=== PATIENT | male | born 1955 | race Caucasian/White ===

== ENCOUNTER → 2019-10-15 06:23 | Outpatient (CLI) | payer MEDICARE, OTHER, SELFPAY ==
--- NOTE | 2019-10-15 06:25 | NM_ITS ---
APPROVED REPORT Exam: Nuclear Stress Test Indication: Fatigue, CAD, HTN, DM, Family history Patient Location: Outpatient Stress Tech: Tanesha Collazo NM Tech:Karina Bailey, ARRT, RT (R)(N) Ht: 5 ft 8 in Wt: 195 lbs HR: 80 bpm BP: 133/78 mmHg BSA: 2.02 m2 BMI: 29.6 History: Fatigue, CAD, HTN, DM, Family history Procedure: Patient received a 0.4 mg of intravenous Lexiscan, resting heart rate 80 bpm, resting blood pressure 133/78 mmHg, with Lexiscan maximum heart rate achived was 99 bpm which is Less than 85 % of the maximum predicted heart rate and blood pressure was 177/85 mmHg. With Lexiscan, patient denied any complaint of chest pain. Electrocardiogram Resting electrocardiogram showed sinus rhythm nonspecific ST-T changes, with Lexiscan there is less than 1.[address] segment depression noted from the baseline EKG. The EKG portion of the Lexiscan Myoview is nondiagnostic. Cardiac Stress and Resting SPECT Images: Cardiac Stress and Resting SPECT images were obtained using technetium 99m Myoview 32.4 mCi stress and 10.66 mCi at rest. Gated SPECT for the analysis of segmental wall motion and calculation of the ejection fraction also done. Cardiac stress and rest SPECT images show a fixed defect posterolaterally with normal christiano gated SPECT is likely secondary to soft tissue attenuation, no reversible ischemia seen. Computer derived ejection fraction is over 65% with no regional wall motion abnormality, right ventricle is normal size and contractility. Conclusion: 1. The EKG portion of the Lexiscan Myoview is nondiagnostic. 2. No scintigraphic evidence of reversible ischemia seen, computer derived ejection fraction is over 65% with no regional wall motion abnormality, right ventricle is normal size and contractility. 3. Likely normal Lexiscan Myoview study. Electronically signed by : Magnus Mackay, 10/16/2019 10:41:29
--- NOTE | 2019-10-15 06:25 | CA_ITS ---
APPROVED REPORT EXAM: Comprehensive 2D, Doppler, and color-flow Echocardiogram Plant And Maintenance Technician: Araceli Rodriguez CRT Ht: 5 ft 8 in Wt: 195lbs BSA: 2.02 BP: 128/73 mmHg Indications: Congestive Heart Failure, Shortness of Breath, Diabetes, Hyperlipidemia, Hypertension/HDD, STENT 2D Dimensions LVOT 1.94 cm (M/F) 1.5-2.5 M-Mode Dimensions RVDd 3.47 cm (0.9-2.6) LVDd 4.96 cm (3.5-5.7) LVDs 2.63 cm (3.5-5.7) IVSd 0.99 cm (0.6-1.1) PWd 0.99 cm (0.6-1.1) EF (Teich) 78.20% FS 47.00% EDV (Teich) 116.10 mL ESV (Teich) 25.30 mL Left Ventricle Left atrium is mildly enlarged, left ventricle is normal size, mild concentric left ventricular hypertrophy, visually estimated ejection fraction 55% with no regional wall motion abnormality. Diastolic parameters are inconclusive. Right Ventricle Right atrium and right ventricle mildly enlarged with normal contractility. Aortic Valve Aortic valve is minimally thickened and fibrosed, there is no aortic stenosis or aortic insufficiency. Mitral Valve Mitral valve is grossly normal, there is mild mitral regurgitation. Tricuspid Valve Tricuspid valve grossly normal, there is mild tricuspid regurgitation, tricuspid regurgitation jet velocity is inadequate for calculation of the right ventricular systolic pressure. Pulmonic Valve Pulmonic valve is poorly visualized. Great Vessels Aortic root is normal size. Pericardium No significant pericardial effusion noted. Conclusion 1. Biatrial enlargement, normal left ventricular size, mild concentric left ventricular hypertrophy, visually estimated ejection fraction 55% with no regional wall motion abnormality. Diastolic parameters are inconclusive. 2. Mildly enlarged right ventricle with normal contractility. 3. Mild mitral and tricuspid regurgitation. 4. No significant pericardial effusion noted. Electronically signed by : Magnus Mackay, 10/16/2019 10:44:33
--- NOTE | 2019-10-15 06:25 | CA_ITS ---
APPROVED REPORT Chocolate Temperer: CT Laterality: Bilateral Indications: myke Risk Factors Hypertension: Hyperlipidemia Diabetes Doppler Spectral Velocity Analysis ECA (R) 80.90/13.50 cm/s ECA (L) 71.30/8.30 cm/s dICA (R) 72.60/22.50 cm/s dICA (L) 62.30/21.80 cm/s Santhosh (R) 61.60/19.70 cm/s Santhosh (L) 64.90/22.50 cm/s pICA (R) 43.60/13.70 cm/s pICA (L) 57.30/16.70 cm/s dCCA (R) 77.10/12.90 cm/s dCCA (L) 82.20/16.70 cm/s pCCA (R) 127.70/14.60 cm/s pCCA (L) 229.60/27.00 cm/s Vert (R) 44.10/10.70 cm/s Vert (L) 36.60/10.80 cm/s ICA/CCA 0.90 ICA/CCA 0.80 Findings Duplex evaluation demonstrates stenosis of the right proximal internal carotid artery <20% with PSV <140 cm/sec, EDV <100 cm/sec, and IC/CC Ratio <4.0. Duplex evaluation demonstrates stenosis of the left proximal internal carotid artery <20% with PSV <140 cm/sec, EDV <100 cm/sec, and IC/CC Ratio <4.0. Duplex evaluation demonstrates antegrade flow of the bilateral Vertebral Arteries. Conclusion Duplex evaluation demonstrates stenosis of the right proximal internal carotid artery <20% with PSV <140 cm/sec, EDV <100 cm/sec, and IC/CC Ratio <4.0. Duplex evaluation demonstrates stenosis of the left proximal internal carotid artery <20% with PSV <140 cm/sec, EDV <100 cm/sec, and IC/CC Ratio <4.0. Duplex evaluation demonstrates antegrade flow of the bilateral Vertebral Arteries. Electronically signed by : Epifanio Ferrer MD 10/16/2019 17:31:19
--- NOTE | 2019-10-15 06:25 | CA_ITS ---
APPROVED REPORT Exam: Pharmacologic Technologist: Tanesha Collazo, Ht: 5 ft 8 in Wt: 195 lbs BSA: 2.02 m2 HR: 80 bpm BP: 133/78 mmHg Indications: Fatigue, Shortness of Breath, ROSENDA Medical History Medications: Amlodipine,,,,, Lisinopril,,,,, Aspirin,,,,, Simvastatin,,,,, Metformin,,,,, Carvedilol,,,,, DApagliflozin,,,,, SeMaglutide,,,,, Stress Test Details Test: LEXISCAN HR Resting HR: 84 bpm Max Heart Rate (APMHR): 155 bpm Max HR Achieved: 110 bpm Target HR (85% APMHR): 131 bpm % of APMHR: 70 Recovery HR: 90 bpm BP Resting BP: 133/78 mmHg Max BP: 177/85 mmHg Recovery BP: 147.0/75.0 mmHg ECG Clinical Exercise duration: 04:00 min Highest Stage Achieved: Exercise capacity: 1.0 METs Stress ECG Conclusion Resting EKG: NSR, First degree AV Block, 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 No Chest Pain Arrhythmias/Ectopy: One ventricular couplet, Rare PVC and short sinus pauses while vomiting. ST-T changes: No significant changes. Conclusion: Unremarkable Lexiscan stress with more than usual nausea and vomiting. Myoview images reported separately. Test Summary . . Myoview Injected . Nausea . . Stop exercise at 04:00 . . . . . . Electronically signed by : Magnus Mackay, 10/16/2019 10:38:47
--- NOTE | 2019-10-15 08:04 | HMH.ITSHM ---
Current Home Medications as stated by this patient Misael Mejía or small business representative. []METFORMIN FARXIGA OZEMPIC SIMVASTATIN NORVASC CARVEDILOL LISINOPRIL ASA
== END ==
PROVIDERS: PCP Family Medicine; Visit Provider Nurse Practitioner Family
DX: E11.9 Type 2 diabetes mellitus without complications (principal); E66.9 Obesity, unspecified; E78.5 Hyperlipidemia, unspecified; I11.9 Hypertensive heart disease without heart failure; I25.10 Atherosclerotic heart disease of native coronary artery without angina pectoris; I44.0 Atrioventricular block, first degree; I50.30 Unspecified diastolic (congestive) heart failure; I65.23 Occlusion and stenosis of bilateral carotid arteries
CPT/HCPCS: 78452; 93017; 93306; 93880; A9502; J2785

== ENCOUNTER → 2021-05-25 09:55 | Outpatient (CLI) | payer MEDICARE, SELFPAY ==
[2021-05-25 10:26] LABS: Creatinine,Urine Random 156 mg/dL (Not Estab.)
[2021-05-25 10:30] LABS: Microalbumin/Creatinine Ratio 6.7
[2021-05-25 10:38] LABS: Chloride 106 mmol/L (98-107); Potassium 4.1 mmoL/L (3.5-5.1); Sodium 140 mmol/L (136-145)
[2021-05-25 10:39] LABS: Alanine Aminotransferase 29 U/L (12-78); Albumin Level 4.5 g/dl (3.5-5.0); Albumin/Globulin Ratio 1.9 (1.1-1.8); Alkaline Phosphatase 39 U/L (38-126); Aspartate Amino Transferase 31 U/L (17-59); Bilirubin,Total 0.5 mg/dl (0.2-1.3); Blood Urea Nitrogen 29 mg/dl (9-20); Calcium 8.8 mg/dl (8.4-10.2); Cholesterol 163 mg/dl (140-200); Estimated Glomerular Filt Rate 75 ml/min (>60); GFR (African American) 90 ML/MIN (>60); Globulin 2.4 g/dL (1.3-3.2); Glucose 126 mg/dl (74-100); Total Protein,Serum 6.9 g/dl (6.3-8.2); Triglycerides 169 mg/dl (30-150); VLDL Cholesterol 34 mg/dL (0-40)
[2021-05-25 10:40] LABS: Chol/HDL Ratio 3.9 (1-3.5); HDL Cholesterol 42 mg/dl (40-60)
[2021-05-25 10:51] LABS: Direct LDL Cholesterol 73.34 mg/dL (100-129)
[2021-05-25 14:05] LABS: Anion Gap 13.1 mEq/L (5-15); Carbon Dioxide 25 mmol/L (22.0-30.0)
== END ==
PROVIDERS: Visit Provider Internal Medicine Endocrinology, Diabetes & Metabolism
DX: E11.59 Type 2 diabetes mellitus with other circulatory complications (principal); E78.5 Hyperlipidemia, unspecified; Z79.84 Long term (current) use of oral hypoglycemic drugs
CPT/HCPCS: 36415; 80053; 80061; 82043; 82570

== ENCOUNTER → 2022-06-05 09:42 | Outpatient (CLI) | payer MEDICARE, SELFPAY ==
[2022-06-05 10:32] LABS: Basophils % 0.3 % (0.1-2.0); Eosinophils # 0.1 K/mm3 (0.0-0.4); Eosinophils % 1.3 % (0.1-12.0); Hemoglobin 15.8 g/dL (14.1-18.0); Lymphocytes # 1.7 K/mm3 (0.7-4.5); Lymphocytes % 23.1 % (10-50); Mean Corpuscular HGB Conc 31.7 g/dL (31.8-35.4); Mean Corpuscular Hemoglobin 28.6 pg (27.0-31.2); Mean Corpuscular Volume 90.5 fl (80-94); Mean Platelet Volume 9.7 fl (7.4-10.4); Monocytes # 0.6 K/mm3 (0.1-1.0); Monocytes % 7.3 % (1.7-9.3); Neutrophils # 5.1 K/mm3 (1.8-7.8); Platelet Count 209 K/mm3 (142-424); Red Blood Count 5.52 M/mm3 (4.60-6.20); Red Cell Distribution Width 14.5 % (11.5-17.5); White Blood Count 7.5 K/mm3 (4.8-10.8)
[2022-06-05 11:12] LABS: Alanine Aminotransferase 25 U/L (12-78); Albumin Level 4.5 g/dl (3.5-5.0); Alkaline Phosphatase 42 U/L (38-126); Anion Gap 13.4 mEq/L (5-15); Aspartate Amino Transferase 29 U/L (17-59); Bilirubin,Indirect 0.5 mg/dL (0.0-0.9); Bilirubin,Total 0.5 mg/dl (0.2-1.3); Bilirubin,Unconjugated 0.6 mg/dL (0.0-1.1); Blood Urea Nitrogen 24 mg/dl (9-20); Calcium 9.4 mg/dl (8.4-10.2); Carbon Dioxide 27 mmol/L (22.0-30.0); Chloride 102 mmol/L (98-107); Chol/HDL Ratio 3.2 (1-3.5); Cholesterol 143 mg/dl (140-200); Estimated Glomerular Filt Rate 67 ml/min (>60); GFR (African American) 81 ML/MIN (>60); Glucose 116 mg/dl (74-100); HDL Cholesterol 45 mg/dl (40-60); Potassium 4.4 mmoL/L (3.5-5.1); Sodium 138 mmol/L (136-145); Total Protein,Serum 6.9 g/dl (6.3-8.2); Triglycerides 120 mg/dl (30-150); VLDL Cholesterol 24 mg/dL (0-40)
[2022-06-05 11:23] LABS: Direct LDL Cholesterol 68.65 mg/dL (100-129)
[2022-06-05 11:28] LABS: Free T4 (Free Thyroxine) 1.11 ng/dl (0.78-2.19)
[2022-06-05 11:45] LABS: Thyroid Stimulating Hormone 2.59 uIU/mL (0.465-4.68)
== END ==
PROVIDERS: PCP Family Medicine; Visit Provider Nurse Practitioner
DX: E78.2 Mixed hyperlipidemia (principal); I25.10 Atherosclerotic heart disease of native coronary artery without angina pectoris; I44.0 Atrioventricular block, first degree; I50.32 Chronic diastolic (congestive) heart failure; I65.23 Occlusion and stenosis of bilateral carotid arteries; I11.0 Hypertensive heart disease with heart failure
CPT/HCPCS: 36415; 80048; 80061; 80076; 83735; 84439; 84443; 85025

== ENCOUNTER → 2022-06-09 12:34 | Outpatient (CLI) | payer MEDICARE, SELFPAY ==
--- NOTE | 2022-06-09 12:37 | CA_ITS ---
FINAL REPORT TECHNIQUE: Color Doppler, duplex Doppler and decker scale sonography of the bilateral neck arterial vasculature was performed. Velocities were measured in the carotid arteries. Stenosis evaluation based on the validated velocity criteria. CLINICAL HISTORY: myke, HTN, hyperlipidemia, DM, CAD, 1 cardiac stent FINDINGS: The peak systolic velocity of the right common carotid artery is 92 cm/s. The peak systolic velocity of the right internal carotid artery is 98 cm/s and end diastolic velocity 28 cm/s. A small amount of plaque is present. The right external carotid artery is patent. The right vertebral artery is patent with antegrade flow. The peak systolic velocity of the left common carotid artery is 125 cm/s. The peak systolic velocity of the left internal carotid artery is 94 cm/s and end diastolic velocity 28 cm/s. A small amount of plaque is present. The left external carotid artery is patent.The left vertebral artery is patent with antegrade flow. IMPRESSION: Less than 50% bilateral carotid stenoses. Bilateral patent vertebral arteries with antegrade flow. If indicated, CTA or MRA could further evaluate. Reviewed, Interpreted and Dictated by Jerad Arshad III, MD Transcribed by Ivonne Shields Authenticated and [facility]
== END ==
PROVIDERS: PCP Family Medicine; Visit Provider Nurse Practitioner
DX: E78.2 Mixed hyperlipidemia (principal); I11.9 Hypertensive heart disease without heart failure; I25.10 Atherosclerotic heart disease of native coronary artery without angina pectoris; I44.0 Atrioventricular block, first degree; I50.32 Chronic diastolic (congestive) heart failure; I65.23 Occlusion and stenosis of bilateral carotid arteries
CPT/HCPCS: 93880

== ENCOUNTER 2024-12-16 10:35 | Outpatient (CLI) | payer MEDICARE, SELFPAY ==
--- OUTSIDE RECORDS SUMMARY | 2024-12-16 10:46 | XMS_ITS | Continuity of Care Document ---
Author Organization [facility] Address [address] [place] [phone] Phone Care Team Providers Care Debarker Operator Name Role Phone Unavailable Primary Care Provider Unavailabl e Encounters Date Type Department Care Team Description 08/28/2024 Results Follow-Up [facility] [address] [place] [address] Delma Garnett RN IRIS DIABETIC RETINOPATHY EXAM 08/28/2024 Patient Outreach [facility] [address] [place] [address] Hugo Potter MD Results (iris) 08/28/2024 9:00 AM EDT Office Visit [facility] [address] [place] [phone] Hugo Potter MD Type 2 diabetes mellitus with hyperglycemia, without long-term current use of insulin (HCC) (Primary Dx); Hypertension associated with diabetes (HCC); Hyperlipidemia associated with type 2 diabetes mellitus (HCC); Type 2 diabetes mellitus without complication, unspecified whether group home insulin use (HCC) 06/06/2024 Refill [facility] [address] [place] [phone] Hugo Potter MD Medication Refill 03/07/2024 Orders Only [facility]P [facility] [address] [place] [address] La Nena Cope CPhT 03/03/2024 Telephone [facility] [address] [place] [phone] Hugo Potter MD Labs Only 02/28/2024 10:15 AM EST Office Visit [facility] [address] [place] [phone] Hugo Potter MD Type 2 diabetes mellitus with hyperglycemia, without long-term current use of insulin (HCC) (Primary Dx); Hypertension associated with diabetes (HCC); Hyperlipidemia associated with type 2 diabetes mellitus (HCC) 11/12/2023 Telephone [facility] [address] [place] [phone] Hugo Potter MD Medication Management 11/09/2023 Refill [facility] [address] [place] [phone] Hugo Potter MD Medication Refill 10/02/2023 Refill [facility] [address] [place] [phone] Hugo Potter MD Medication Refill 09/28/2023 Telephone [facility] [address] [place] [phone] Hugo Potter MD Medication Refill 09/07/2023 Telephone [facility] [address] [place] [phone] Hugo Potter MD Medication Management 08/30/2023 Orders Only [facility] [address] [place] [phone] Hugo Potter MD Type 2 diabetes mellitus with hyperglycemia, without long-term current use of insulin (HCC) (Primary Dx) 08/30/2023 9:45 AM EDT Office Visit [facility] [address] [facility] [address] [place], [place] [phone] Hugo Potter MD Type 2 diabetes mellitus with hyperglycemia, without long-term current use of insulin (HCC) (Primary Dx); Hypertension associated with diabetes (HCC); Hyperlipidemia associated with type 2 diabetes mellitus (HCC) 05/28/2023 Refill [place] [address] [place] [phone] Hugo Potter MD Medication Refill 03/01/2023 10:00 AM EST Office Visit [place] [address] [phone] Hugo Potter MD Type 2 diabetes mellitus with hyperglycemia, without long-term current use of insulin (HCC) (Primary Dx); Hypertension associated with diabetes (HCC); Hyperlipidemia associated with type 2 diabetes mellitus (HCC) 09/06/2022 Patient Outreach [facility] [address] [place] [phone] Freddy Mims [place] Patient Navigator Outreach (Appointment Needed) 09/01/2022 Telephone [place] [address] [phone] Hugo Potter MD Labs Only 08/31/2022 9:45 AM EDT Office Visit [place] [address] [place] [phone] Hugo Potter MD Type 2 diabetes mellitus with hyperglycemia, without long-term current use of insulin (HCC) (Primary Dx); Hypertension associated with diabetes (HCC); Hyperlipidemia associated with type 2 diabetes mellitus (HCC) 07/27/2022 Patient Outreach [facility] [address] [place], [place] [phone] Priyanka Campos, PharmD Medication Management 03/01/2022 9:45 AM EST Office Visit [place] [address] [place] [phone] Hugo Potter MD Type 2 diabetes mellitus with hyperglycemia, without long-term current use of insulin (HCC) (Primary Dx); Hypertension associated with diabetes (HCC); Hyperlipidemia associated with type 2 diabetes mellitus (HCC) 02/28/2022 Telephone SEP [facility] [address] [place] [phone] Hugo Potter MD Confirmation 01/25/2022 Refill [facility] [address] [place] [phone] Hugo Potter MD Medication Refill 10/20/2021 Refill [place] [address] [place], [place] [phone] Hugo Potter MD Medication Refill 08/26/2021 9:30 AM EDT Office Visit [place] [address] [place], [place] [phone] Hugo Potter MD Type 2 diabetes mellitus with hyperglycemia, without long-term current use of insulin (HCC) (Primary Dx) 05/20/2021 10:30 AM EDT Office Visit [place] [address] [phone] Hugo Potter MD Hypertension associated with diabetes (HCC) (Primary Dx); Type 2 diabetes mellitus with hyperglycemia, without long-term current use of insulin (HCC); Hyperlipidemia associated with type 2 diabetes mellitus (HCC) 05/02/2021 Refill [facility] [address] [place] [phone] Hugo Potter MD Medication Refill 02/18/2021 11:15 AM EST Office Visit [facility] [address] [place] [phone] Hugo Potter MD Type 2 diabetes mellitus with hyperglycemia, without long-term current use of insulin (HCC) (Primary Dx); Hypertension associated with diabetes (HCC); Hyperlipidemia associated with type 2 diabetes mellitus (HCC) 11/12/2020 Travel 11/12/2020 11:15 AM EDT Office Visit [place] [address] [phone] Hugo Potter MD Type 2 diabetes mellitus with hyperglycemia, without long-term current use of insulin (HCC) (Primary Dx); Hypertension associated with diabetes (HCC); Hyperlipidemia associated with type 2 diabetes mellitus (HCC) 08/11/2020 Travel 08/11/2020 11:30 AM EDT Office Visit [place] [address] [address] [employer] [facility] [employer] [address] [phone] Hugo Potter MD Type 2 diabetes mellitus with hyperglycemia, without long-term current use of insulin (HCC) (Primary Dx); Hypertension associated with diabetes (HCC); Hyperlipidemia associated with type 2 diabetes mellitus (HCC) 05/05/2020 Travel 05/05/2020 11:15 AM EDT Office Visit [place] [address] [address] [employer] [facility] [employer] [address] [phone] Hugo Potter MD Type 2 diabetes mellitus with hyperglycemia, without long-term current use of insulin (HCC) (Primary Dx); Hypertension associated with diabetes (HCC); Hyperlipidemia associated with type 2 diabetes mellitus (HCC) 05/03/2020 Telephone [place] [address] [address] [employer] [facility] [employer] [address] [phone] Hugo Potter MD Labs Only Allergies No known active allergies Medications amLODIPine (NORVASC) 10 mg Oral Tablet Take 1 Tab by mouth daily. 1 Active carvediloL (COREG) 12.5 mg Oral Tablet Take 1 Tab by mouth daily. 1 Active lisinopriL-hyd rochlorothiazi de (PRINZIDE;ZEST ORETIC) 20-12.5 mg Oral Tablet Take 1 Tab by mouth daily. 1 Active ondansetron (ZOFRAN-ODT) 4 mg Oral Tablet, Rapid Dissolve as needed. 1 Active aspirin 81 mg Oral Tablet, Delayed Release (E.C.) Take 81 mg by mouth daily. Active rosuvastatin (CRESTOR) 40 mg Oral Tablet Take 40 mg by mouth daily. 4 Active Blood Sugar Diagnostic (CONTOUR NEXT TEST STRIPS) [facility] Use to test blood sugar daily. 100 Each 3 4 Active FARXIGA 10 mg Oral TabletIndicati ons:Type 2 diabetes mellitus with hyperglycemia, without long-term current use of insulin (HCC) Take 1 Tablet by mouth daily. 90 Tablet 3 4 Active pioglitazone (ACTOS) 45 mg Oral TabletIndicati ons:Type 2 diabetes mellitus with hyperglycemia, without long-term current use of insulin (HCC) Take 1 Tablet by mouth daily. 90 Tablet 3 5 Active semaglutide (OZEMPIC) 1 mg/dose (4 mg/3 mL) SubQ Pen InjectorIndica tions:Type 2 diabetes mellitus with hyperglycemia, without long-term current use of insulin (HCC) INJECT 1MG SUBCUTANEOUSLY WEEKLY (EVERY 7 DAYS) 9 mL 1 5 Active metFORMIN (GLUCOPHAGE) 1,000 mg Oral TabletIndicati ons:Type 2 diabetes mellitus with hyperglycemia, without long-term current use of insulin (HCC) TAKE 1 TABLET TWICE DAILY WITH MEALS 180 Tablet 1 5 Active Active Problems Problem Noted Date Diagnosed Date Type 2 diabetes mellitus wit h hyperglycemia, without long-term current use of insulin 05/05/2020 Hypertension associated with diabetes 05/05/2020 Hyperlipidemia associated with type 2 diabetes m ellitus 05/05/2020 Immunizations Immunization Administration Dates Next Due Influenza Vaccine Quadrivalent PF 01/23/2022,01/2020 Tdap 12/04/2019 Social History Smoking Status as of 12/16/2024 Tobacco Use Types Packs/Day Years Used Date Smoking Tobacco: Never Assessed Sex and Gender Information Value Date Recorded Sex Assigned at Not on file Legal Sex Male 10:16 AM EST Gender Identity Not on file Sexual Orientation Not on file Last Filed Vital Signs Vital Sign Reading Time Taken Comments Blood Pressure 124/72 08/28/2024 8:45 AM EDT Pulse 78 08/28/2024 8:45 AM EDT Temperature - - Respiratory Rate 18 02/28/2024 10:12 AM EST Oxygen Saturation - - Inhaled Oxygen Concentration - - Weight 93.6 kg (206 lb 6.4 oz) 08/28/2024 8:45 A M EDT Height 172.7 cm (5' 8 ) 08/28/2024 8:45 AM EDT Body Mass Index 31.38 08/28/2024 8:45 AM EDT Plan of Treatment Upcoming Encounters Date Type Department Care Team (Late st Contact Info) Description 03/02/2025 10:45 AM EST [facility] [place] [address] [facility] [address] [place] [address] Hugo Potter MD [address] [place] [address] Procedures Procedure Name Priority Date/Time Associated Diagnosis Comments IRIS DIABETIC RETINOPATHY EXAM Routine 08/28/2024 9:50 AM EDT Type 2 diabetes mellitus without complication, unspecified whether terminal operations supervisor insulin use (HCC) COMPREHENSIVE METABOLIC PANEL Routine 08/18/2024 LIPID PANEL REFLEX Routine 08/18/2024 VITAMIN B12 LEVEL Routine 08/18/2024 HEMOGLOBIN A1C Routine 08/18/2024 ALBUMIN/CREATININE RATIO, RANDOM URINE Routine 08/18/2024 ALBUMIN/CREATININE RATIO, RANDOM URINE Routine 02/14/2024 HEMOGLOBIN A1C Routine 02/14/2024 COMPREHENSIVE METABOLIC PANEL Routine 02/14/2024 LIPID PANEL REFLEX Routine 02/14/2024 VITAMIN B12 LEVEL Routine 02/14/2024 HEMOGLOBIN A1C Routine 08/20/2023 COMPREHENSIVE METABOLIC PANEL Routine 08/20/2023 LIPID PANEL REFLEX Routine 08/20/2023 ALBUMIN/CREATININE RATIO, RANDOM URINE Routine 08/20/2023 SCANNED LABS 03/06/2023 11:56 AM EST ALBUMIN/CREATININE RATIO, RANDOM URINE Routine 02/20/2023 COMPREHENSIVE METABOLIC PANEL Routine 02/20/2023 LIPID PANEL REFLEX Routine 02/20/2023 THYROID STIMULATING HORMONE Routine 02/20/2023 HEMOGLOBIN A1C Routine 02/20/2023 SCANNED LABS 09/12/2022 5:56 AM EDT ALBUMIN/CREATININE RATIO, RANDOM URINE Routine 08/17/2022 COMPREHENSIVE METABOLIC PANEL Routine 08/17/2022 LIPID PANEL REFLEX Routine 08/17/2022 VITAMIN B12 LEVEL Routine 08/17/2022 HEMOGLOBIN A1C Routine 08/17/2022 POCT GLYCATED HEMOGLOBIN, TOTAL Routine 03/01/2022 9:56 AM EST Type 2 diabetes mellitus with hyperglycemia, without long-term current use of insulin (HCC) SCANNED LABS 08/26/2021 10:43 AM EDT POCT GLYCATED HEMOGLOBIN, TOTAL Routine 08/26/2021 9:42 AM EDT Type 2 diabetes mellitus with hyperglycemia, without long-term current use of insulin (HCC) ALBUMIN/CREATININE RATIO, RANDOM URINE Routine 05/25/2021 LIPID SCREEN Routine 05/25/2021 COMPREHENSIVE METABOLIC PANEL Routine 05/25/2021 POCT GLYCATED HEMOGLOBIN, TOTAL Routine 05/20/2021 10:39 AM EDT Type 2 diabetes mellitus with hyperglycemia, without long-term current use of insulin (HCC) POCT GLYCATED HEMOGLOBIN, TOTAL Routine 02/18/2021 11:44 AM EST Type 2 diabetes mellitus with hyperglycemia, without long-term current use of insulin (HCC) ALBUMIN/CREATININE RATIO, RANDOM URINE Routine 11/05/2020 LIPID PANEL REFLEX Routine 11/05/2020 COMPREHENSIVE METABOLIC PANEL Routine 11/05/2020 HEMOGLOBIN A1C Routine 11/05/2020 POCT GLYCATED HEMOGLOBIN, TOTAL Routine 08/11/2020 12:11 PM EDT Type 2 diabetes mellitus with hyperglycemia, without long-term current use of insulin (HCC) POCT GLYCATED HEMOGLOBIN, TOTAL Routine 05/05/2020 11:40 AM EDT Type 2 diabetes mellitus with hyperglycemia, without long-term current use of insulin (HCC) Results * (ABNORMAL) IRIS DIABETIC RETINOPATHY EXAM (08/28/2024 9:50 AM EDT) [facility] Retinopathy Exam Severity ALERT(A) [facility] Right Eye Image Quality Not Gradable Image [facility] Left Eye Image Quality Not Gradable Image [facility] 08/28/2024 9:50 AM EDT 08/28/2024 9:50 AM EDT Impressions [facility] - 08/28/2024 10:50 AM EDT Retinal Study Result for MISAEL MEJÍA, a 68 y/o, M (: 1955, ) presented to [facility] on 08-28-2024 for a retinal imaging study of the left and right eyes. Based on the findings of the study, the following is recommended for MISAEL MEJÍA Not Gradable Eye(s) Found: Refer patient to Ophthalmology for appointment within 2 weeks Interpreting Provider's Comments: No comments provided Diagnoses Present: E119 - Type 2 diabetes mellitus without complications Right eye findings: Eye not gradable for reasons listed: Pérez anatomy missing or not clearly visible Left eye findings: Eye not gradable for reasons listed: Pérez anatomy missing or not clearly visible This result was electronically signed by Jonathan Osei MD, , Taxonomy: [id number] on 08-28-2024 14:50 UTC. NOTE: Any pathology noted on this diabetic retinal evaluation should be confirmed by an appropriate ophthalmic examination. Hugo Potter MD OPHTHALMOLOGY SERVICES ORDERA BLES Final Result Performing Organization Address [facility]/[place] [address] * LIPID PANEL REFLEX (08/18/2024) Only the most recent of6 resultswithin the time period is included. Triglycerides 107 MG/DL SEP OFFICE Comment:<150 Cholesterol 110 0 - 200 MG/DL SEP OFFICE Comment:<200 HDL 46 >=40 MG/DL SEP OFFICE Comment:>60 LDL Calculated 43 0 - 160 MG/DL SEP OFFICE Comment:<100 Blood VENOUS BLOOD / Unknown 08/18/2024 Hugo Potter MD CHEMISTRY ORDERABLES Final Re sult Performing Organization Address City/[facility]/ZIP Co de Phone Number SEP OFFICE * MICROALBUMIN/CREATININE RATIO URINE (08/18/2024) Only the most recent of7 resultswithin the time period is included. Creatinine Urine 124.4 SEP OFFICE Albumin, Ur 3.8 <=31 MG/L SEP OFFICE Urine Microalb/Creat Ratio 3 MCG/MG CREAT. SEP OFFICE Comment:0-29 Urine STRUCTURE OF URINARY TRACT PROPER / Unknown 08/18/2024 Hugo Potter MD URINE ORDERABLES Final Result SEP OFFICE * HEMOGLOBIN A1C (08/18/2024) Only the most recent of6 resultswithin the time period is included. Hemoglobin A1C 7.6 % SEP OFFICE Comment:4.5-6.2 Blood VENOUS BLOOD / Unknown 08/18/2024 Hugo Potter MD CHEMISTRY ORDERABLES Final Re sult Performing Organization Address City/[facility]/ZIP Co de Phone Number SEP OFFICE * VITAMIN B12 LEVEL (08/18/2024) Only the most recent of3 resultswithin the time period is included. Vitamin B12 447 PG/ML SEP OFFICE Comment:232-1245 Blood VENOUS BLOOD / Unknown 08/18/2024 uHgo Potter MD CHEMISTRY ORDERABLES Final Re sult Performing Organization Address [facility] Co de Phone Number SEP OFFICE * (ABNORMAL) COMPREHENSIVE METABOLIC PANEL (08/18/2024) Only the most recent of7 resultswithin the time period is included. Sodium 139 137 - 147 MMOL/L SEP OFFICE Comment:136-145 Potassium 4.3 3.5 - 5.0 mmol/L SEP OFFICE Comment:3.5-5.1 Chloride 100 99 - 108 MMOL/L SEP OFFICE Comment:98-107 Total CO2 26 22 - 29 MMOL/L SEP OFFICE Comment:24-33 Anion Gap 17.3 MMOL/L SEP OFFICE Comment:10-20 Glucose Lvl 136 MG/DL SEP OFFICE Comment:70-99 BUN 30(A) 4 - 21 MG/DL SEP OFFICE Comment:7-18 Creatinine 1.5(A) 0.6 - 1.3 MG/DL SEP OFFICE Comment:0.70-1.30 Estimated GFR 52 SEP OFFICE Comment:>60 BUN 20 4 - 21 MG/DL SEP OFFICE Comment:12-20 Total Protein 6.9 6.4 - 8.2 GM/DL SEP OFFICE Comment:6.4-8.2 Albumin 4.1 GM/DL SEP OFFICE Comment:3.4-5.0 Globulin 2.8 G/DL SEP OFFICE Comment:1.5-4.0 A/G Ratio 1.5 (CALC) SEP OFFICE Comment:0.5-2.0 Calcium 9.30 8.70 - 10.70 MG/DL SEP OFFICE Comment:8.1-10.1 Osmolality Calc 285 SEP OFFICE Comment:272-288 Bilirubin,Total 0.7 MG/DL SEP OFFICE Comment:0.2-1.0 AST 28 14 - 40 IU/L SEP OFFICE Comment:15-337 ALT 39 U/L SEP OFFICE Comment:16-63 Alk Phos 44 25 - 125 IU/L SEP OFFICE Comment:46-116 Blood VENOUS BLOOD / Unknown 08/18/2024 us Hugo Potter MD CHEMISTRY ORDERABLES Final Re sult SEP OFFICE * SCANNED LABS (03/06/2023 11:56 AM EST) Only the most recent of3 resultswithin the time period is included. 03/06/2023 11:5 6 AM EST us Unknown Provider HEMATOLOGY ORDERABLES Final Res ult * THYROID STIMULATING HORMONE (02/20/2023) TSH 2.590 0.400 - 4.500 MCIU/ML SEP OFFICE Comment:0.36-3.74 Blood VENOUS BLOOD / Unknown 02/20/2023 us Historical Provider CHEMISTRY ORDERABLES Final R esult SEP OFFICE * (ABNORMAL) POCT GLYCATED HEMOGLOBIN, TOTAL (03/01/2022 9:56 AM EST) Only the most recent of6 resultswithin the time period is included. Hemoglobin A1C 6.3(A) 4 - 6 % SEP OFFICE Lot Number SEP OFFICE Expiration Date SEP OFFICE SeriAl # SEP OFFICE 03/01/2022 9:56 AM EST Hugo Potter MD POINT OF CARE TEST ORDERABLES Final Result SEP OFFICE * LIPID SCREEN (05/25/2021) Triglycerides 169 MG/DL SEP OFFICE Comment:30-150 Cholesterol 163 0 - 200 MG/DL SEP OFFICE Comment:140-200 LDL Direct 73.34 MG/DL SEP OFFICE Comment:100-129 VLDL 34 MG/DL SEP OFFICE Comment:0-40 HDL 42 35 - 70 MG/DL SEP OFFICE Comment:40-60 Chol/HDL Ratio 3.9 SEP OFFICE Comment:1-3.5 Blood VENOUS BLOOD / Unknown 05/25/2021 Hugo Potter MD CHEMISTRY ORDERABLES Final Re sult SEP OFFICE Visit Diagnoses Diagnosis Start Date Type 2 diabetes mellitus with hyperglycemia, without long-term current use of insulin ([facility]) 05/05/2020 Hypertension associated with diabetes (HCC) Type II or unspecified type diabetes mellitus with other specified manifestations, not stated as uncontrolled 05/05/2020 Hyperlipidemia associated with type 2 diabetes mellitus (HCC) 05/05/2020 Type 2 diabetes mellitus with hyperglycemia, without long-term current use of insulin (HCC) 08/11/2020 Hypertension associated with diabetes (HCC) Type II or unspecified type diabetes mellitus with other specified manifestations, not stated as uncontrolled 08/11/2020 Hyperlipidemia associated with type 2 diabetes mellitus (HCC) 08/11/2020 Type 2 diabetes mellitus with hyperglycemia, without long-term current use of insulin (HCC) 11/12/2020 Hypertension associated with diabetes (HCC) Type II or unspecified type diabetes mellitus with other specified manifestations, not stated as uncontrolled 11/12/2020 Hyperlipidemia associated with type 2 diabetes mellitus (HCC) 11/12/2020 Type 2 diabetes mellitus with hyperglycemia, without long-term current use of insulin (HCC) 02/18/2021 Hypertension associated with diabetes (HCC) Type II or unspecified type diabetes mellitus with other specified manifestations, not stated as uncontrolled 02/18/2021 Hyperlipidemia associated with type 2 diabetes mellitus (HCC) 02/18/2021 Type 2 diabetes mellitus with hyperglycemia, without long-term current use of insulin (HCC) 05/02/2021 Type 2 diabetes mellitus with hyperglycemia, without long-term current use of insulin (HCC) 05/20/2021 Hypertension associated with diabetes (HCC) Type II or unspecified type diabetes mellitus with other specified manifestations, not stated as uncontrolled 05/20/2021 Hyperlipidemia associated with type 2 diabetes mellitus (HCC) 05/20/2021 Type 2 diabetes mellitus with hyperglycemia, without long-term current use of insulin (HCC) 08/26/2021 Type 2 diabetes mellitus with hyperglycemia, without long-term current use of insulin (HCC) 10/20/2021 Type 2 diabetes mellitus with hyperglycemia, without long-term current use of insulin (HCC) 01/25/2022 Type 2 diabetes mellitus with hyperglycemia, without long-term current use of insulin (HCC) 03/01/2022 Hypertension associated with diabetes (HCC) Type II or unspecified type diabetes mellitus with other specified manifestations, not stated as uncontrolled 03/01/2022 Hyperlipidemia associated with type 2 diabetes mellitus (HCC) 03/01/2022 Type 2 diabetes mellitus with hyperglycemia, without long-term current use of insulin (HCC) 08/31/2022 Hypertension associated with diabetes (HCC) Type II or unspecified type diabetes mellitus with other specified manifestations, not stated as uncontrolled 08/31/2022 Hyperlipidemia associated with type 2 diabetes mellitus (HCC) 08/31/2022 Type 2 diabetes mellitus with hyperglycemia, without long-term current use of insulin (HCC) 03/01/2023 Hypertension associated with diabetes (HCC) Type II or unspecified type diabetes mellitus with other specified manifestations, not stated as uncontrolled 03/01/2023 Hyperlipidemia associated with type 2 diabetes mellitus (HCC) 03/01/2023 Type 2 diabetes mellitus with hyperglycemia, without long-term current use of insulin (HCC) 05/28/2023 Type 2 diabetes mellitus with hyperglycemia, without long-term current use of insulin (HCC) 08/30/2023 Type 2 diabetes mellitus with hyperglycemia, without long-term current use of insulin (HCC) 08/30/2023 Hypertension associated with diabetes (HCC) Type II or unspecified type diabetes mellitus with other specified manifestations, not stated as uncontrolled 08/30/2023 Hyperlipidemia associated with type 2 diabetes mellitus (HCC) 08/30/2023 Type 2 diabetes mellitus with hyperglycemia, without long-term current use of insulin (HCC) 09/28/2023 Type 2 diabetes mellitus with hyperglycemia, without long-term current use of insulin (HCC) 10/02/2023 Type 2 diabetes mellitus with hyperglycemia, without long-term current use of insulin (HCC) 11/09/2023 Type 2 diabetes mellitus with hyperglycemia, without long-term current use of insulin (HCC) 11/12/2023 Type 2 diabetes mellitus with hyperglycemia, without long-term current use of insulin (HCC) 02/28/2024 Hypertension associated with diabetes ([facility]) Type II or unspecified type diabetes mellitus with other specified manifestations, not stated as uncontrolled 02/28/2024 Hyperlipidemia associated with type 2 diabetes mellitus (HCC) 02/28/2024 Type 2 diabetes mellitus with hyperglycemia, without long-term current use of insulin (HCC) 06/06/2024 Type 2 diabetes mellitus with hyperglycemia, without long-term current use of insulin (HCC) 08/28/2024 Hypertension associated with diabetes ([facility]) Type II or unspecified type diabetes mellitus with other specified manifestations, not stated as uncontrolled 08/28/2024 Hyperlipidemia associated with type 2 diabetes mellitus (HCC) 08/28/2024 Type 2 diabetes mellitus without complication, unspecified whether terminal operations supervisor insulin use 08/28/2024
--- OUTSIDE RECORDS SUMMARY | 2024-12-16 10:46 | XMS_ITS | Encounter Summary ---
Author Organization [place] [address] Care Team Providers Care Recycling Sorter Name Role Phone Unavailable Primary Care Provider Unavailabl e Encounter Details Date Type Department Care Team (Late st Contact Info) Description 08/28/2024 Results Follow-Up [facility] [address] [place] [address] Delma Garnett RN [facility] EXAM Social History Tobacco Use Types Packs/Day Years Used Date Smoking Tobacco: Never Smokeless Tobacco: Never Sex and Gender Information Value Date Recorded Sex Assigned at Not on file Legal Sex Male 10:16 AM EST Gender Identity Not on file Sexual Orientation Not on file documented as of this encounter Plan of Treatment Upcoming Encounters Date Type Department Care Team (Late st Contact Info) Description 03/02/2025 10:45 AM EST [facility] [address] [address] Hugo Potter MD [address] [place] [address] documented as of this encounter Visit Diagnoses Not on filedocumented in this encounter Additional Health Concerns Assessment Noted Time A fall risk assessment has been complete d for the patient 08/31/2022 9:59 AM EDT documented as of this encounter
[2024-12-16 11:45] LABS: Anion Gap 13.8 mEq/L (5-15); Blood Urea Nitrogen 26 mg/dl (9-20); Calcium 9.3 mg/dl (8.4-10.2); Carbon Dioxide 25 mmol/L (22.0-30.0); Chloride 104 mmol/L (98-107); Creatinine,Serum 1.10 mg/dl (0.66-1.25); Estimated Glomerular Filt Rate 66 ml/min (>60); GFR (African American) 80 ML/MIN (>60); Glucose 158 mg/dl (74-100); Potassium 3.8 mmoL/L (3.5-5.1); Sodium 139 mmol/L (136-145)
== END 2024-12-16 23:59 | disposition home or self-care (01) ==
PROVIDERS: Visit Provider Physician Assistant
DX: I25.10 Atherosclerotic heart disease of native coronary artery without angina pectoris (principal)
CPT/HCPCS: 36415; 80048